=== PATIENT | male | born 1955 | race African-American/Black ===

== ENCOUNTER 2020-02-02 09:33 | Emergency (ER) | payer BC, OTHER ==
[~2020-02-02] VITALS: Ht 177.8 cm; Wt 91.0 kg
[2020-02-02] MEDS ORDERED: ASPIRIN 81MG TABLET PO ONE (10:15)
[2020-02-02 10:21] LABS: HEMATOCRIT. 49.9 % (42.0-52.0); HEMOGLOBIN. 17.3 g/dL (14.0-18.0); LYMPHOCYTES % 33.3 % (20.0-50.0); MEAN CORPUSCULAR HEMOGLOBIN 31.3 pg (28.0-32.0); MEAN CORPUSCULAR VOLUME 90.2 fL (80.0-94.0); MEAN PLATELET VOLUME 7.6 fl (7.4-10.4); MONOCYTES % 9.2 % (2.0-8.0); NEUTROPHILS % 54.5 % (40.0-76.0); PLATELET 205 x1000/uL (130-400); RED BLOOD CELL COUNT 5.53 mill/uL (4.7-6.1); RED CELL DISTRIBUTION WIDTH 14.6 % (11.6-14.6)
[2020-02-02 10:28] LABS: CHLORIDE 104 mEq/L (98-107)
[2020-02-02 10:37] LABS: CREATINE KINASE 372 IU/L (39-308)
[2020-02-02 10:41] LABS: CREATINE KINASE MB FRACTION 1.2 ng/mL (0.5-3.6)
[2020-02-02] MEDS ORDERED: MAGNESIUM/ALUMINUM HYDROXIDE/SIMETHICONE 30ML UDC PO ONE (12:00)
[2020-02-02] MEDS ORDERED: AMLODIPINE 5MG TABLET PO SCH (12:15)
[2020-02-02 13:03] VITALS: BP 158/97
== END 2020-02-02 13:05 | disposition home or self-care (01) ==
LOC: ENRESERV 10:35 → CANRESERV 10:35 → ER 11:08 → EEVIPCON 11:52 → ER 11:52 → CANBEDREQ 13:05
DX: R07.89 Other chest pain (principal); E78.00 Pure hypercholesterolemia, unspecified; E11.9 Type 2 diabetes mellitus without complications; I10 Essential (primary) hypertension
CPT/HCPCS: 36415; 70450; 71045; 80053; 82550; 82553; 83690; 83735; 83880; 84484; 85025; 93005; 93970; 99285; U0003; Z7610

== ENCOUNTER → 2020-08-19 | Outpatient (CLI) | payer BC | END | disposition home or self-care (01) | LOC: LAB 10:45 | PROVIDERS: ATTEND Internal Medicine Critical Care Medicine | DX: Z20.828 Contact with and (suspected) exposure to other viral communicable diseases (principal) | CPT/HCPCS: C9803; U0003 ==

== ENCOUNTER → 2021-08-20 | Outpatient (CLI) | payer BC | END | disposition home or self-care (01) | LOC: CARD 08-19 07:12 | PROVIDERS: ATTEND Internal Medicine Critical Care Medicine | DX: I35.8 Other nonrheumatic aortic valve disorders (principal); I11.9 Hypertensive heart disease without heart failure; I86.8 Varicose veins of other specified sites; M79.89 Other specified soft tissue disorders | CPT/HCPCS: 93306 ==

== ENCOUNTER → 2023-01-27 | Outpatient (CLI) | payer BC ==
[2023-01-27 10:16] LABS: BASOPHILS % 0.8 % (0.0-2.0); EOSINOPHILS % 2.3 % (0.0-5.0); HEMATOCRIT. 48.9 % (42.0-52.0); HEMOGLOBIN. 16.8 g/dL (14.0-18.0); LYMPHOCYTES % 42.2 % (20.0-50.0); MEAN CORPUSCULAR HEMOGLOBIN 31.1 pg (28.0-32.0); MEAN CORPUSCULAR VOLUME 90.8 fL (80.0-94.0); MEAN PLATELET VOLUME 7.8 fl (7.4-10.4); MONOCYTES % 9.4 % (2.0-8.0); NEUTROPHILS % 45.3 % (40.0-76.0); PLATELET 172 x1000/uL (130-400); RED BLOOD CELL COUNT 5.39 mill/uL (4.7-6.1); RED CELL DISTRIBUTION WIDTH 14.4 % (11.6-14.6)
[2023-01-27 10:35] LABS: CHLORIDE 107 mEq/L (98-107)
[2023-01-27 10:48] LABS: HDL CHOLESTEROL 49 mg/dL (40-59); LDL CHOLESTEROL 103 mg/dL (5-100)
== END | disposition home or self-care (01) ==
LOC: LAB 06:17
PROVIDERS: ATTEND Internal Medicine Critical Care Medicine
DX: Z00.01 Encounter for general adult medical examination with abnormal findings (principal)
CPT/HCPCS: 36415; 80053; 80061; 84439; 84443; 84481; 85025; 86141

== ENCOUNTER → 2023-02-26 | Outpatient (CLI) | payer BC | END | disposition home or self-care (01) | LOC: MRI 06:13 | PROVIDERS: ATTEND Internal Medicine Critical Care Medicine | DX: M51.37 Other intervertebral disc degeneration, lumbosacral region (principal); M51.27 Other intervertebral disc displacement, lumbosacral region; M48.07 Spinal stenosis, lumbosacral region; M47.816 Spondylosis without myelopathy or radiculopathy, lumbar region; R22.9 Localized swelling, mass and lump, unspecified | CPT/HCPCS: 72148 ==

== ENCOUNTER → 2023-10-21 | Outpatient (CLI) | payer BC | END | disposition home or self-care (01) | LOC: RAD 11:12 | PROVIDERS: ATTEND Internal Medicine Critical Care Medicine | DX: M25.562 Pain in left knee (principal) | CPT/HCPCS: 73560 ==

== ENCOUNTER → 2024-01-20 | Outpatient (CLI) | payer BC ==
[2024-01-20 10:35] LABS: BASOPHILS % 0.8 % (0.0-2.0); EOSINOPHILS % 2.5 % (0.0-5.0); HEMATOCRIT. 49.4 % (42.0-52.0); HEMOGLOBIN. 16.8 g/dL (14.0-18.0); LYMPHOCYTES % 40.9 % (20.0-50.0); MEAN CORPUSCULAR HEMOGLOBIN 30.8 pg (28.0-32.0); MEAN CORPUSCULAR HGB CONC 34.1 g/dL (31.0-37.0); MEAN CORPUSCULAR VOLUME 90.3 fL (80.0-94.0); MEAN PLATELET VOLUME 8.1 fl (7.4-10.4); MONOCYTES % 10.3 % (2.0-8.0); NEUTROPHILS % 45.5 % (40.0-76.0); PLATELET 188 x1000/uL (130-400); RED BLOOD CELL COUNT 5.47 mill/uL (4.7-6.1); RED CELL DISTRIBUTION WIDTH 13.8 % (11.6-14.6); WHITE BLOOD COUNT 5.5 x1000/uL (4.5-11.0)
[2024-01-20 11:31] LABS: TRIOIODOTHYRONINE TOTAL 1.14 ng/ml (0.60-1.81)
[2024-01-20 15:28] LABS: CARBON DIOXIDE 22 mEq/L (21-32); CHLORIDE 107 mEq/L (98-107); POTASSIUM 4.2 mEq/L (3.5-5.1); SODIUM 140 mEq/L (136-145)
[2024-01-20 15:29] LABS: CALCIUM 9.7 mg/dL (8.7-10.4)
[2024-01-20 15:34] LABS: CREATININE 1.1 mg/dL (0.6-1.3); GLUCOSE 192 mg/dL (70-105); TRIGLYCERIDE 141 mg/dL (0-150); UREA NITROGEN BLOOD 19 mg/dL (9-23)
[2024-01-20 15:35] LABS: ALANINE AMINOTRANSFERASE 38 IU/L (10-49); LDL CHOLESTEROL 113 mg/dL (5-100)
[2024-01-20 15:36] LABS: ALBUMIN 4.6 g/dL (3.2-4.8); ASPARTATE AMINOTRANSFERASE 26 IU/L (<34); BILIRUBIN TOTAL 1.1 mg/dL (0.1-1.0); CHOLESTEROL 164 mg/dL (<200); HDL CHOLESTEROL 44 mg/dL (>55)
[2024-01-20 15:38] LABS: T4 FREE 1.06 ng/dL (0.89-1.76); THYROID STIMULATING HORMONE 1.26 uIU/mL (0.55-4.78)
== END | disposition home or self-care (01) ==
LOC: LAB 06:27
PROVIDERS: ATTEND Internal Medicine Critical Care Medicine
DX: Z00.01 Encounter for general adult medical examination with abnormal findings (principal)
CPT/HCPCS: 36415; 80053; 80061; 84439; 84443; 84480; 85025

== ENCOUNTER → 2025-02-01 | Outpatient (CLI) | payer BC ==
[~2025-02-01] MED LIST: ASPI-1497 PO; COR12 PO; COR6 PO; HYDR12.54 PO; HYDR25TA PO; NITR0.4T49 SL; SIMV-43 PO
== END | disposition home or self-care (01) ==
LOC: CARD 09:53
PROVIDERS: ATTEND Internal Medicine
DX: I07.1 Rheumatic tricuspid insufficiency (principal); I20.0 Unstable angina
CPT/HCPCS: 93306

== ENCOUNTER 2025-02-02 07:14 | Inpatient (IN) | payer BC ==
[~2025-02-02] VITALS: Ht 177.8 cm; Wt 108.6 kg
[2025-02-02] VITALS (13 sets, daily range): BP systolic 118–138; BP diastolic 72–91; PULSE 49–60; RESP 13–21; TEMP 36.4–36.9; O2SAT 92–98
[~2025-02-02 07:14] MED LIST changes: -COR6 PO; -HYDR12.54 PO
[2025-02-02 07:47] LABS: BASOPHILS % 0.6 % (0.0-2.0); HEMATOCRIT. 53.8 % (42.0-52.0); HEMOGLOBIN. 17.7 g/dL (14.0-18.0); LYMPHOCYTES % 38.4 % (20.0-50.0); MEAN CORPUSCULAR HEMOGLOBIN 30.5 pg (28.0-32.0); MEAN CORPUSCULAR HGB CONC 32.9 g/dL (31.0-37.0); MEAN CORPUSCULAR VOLUME 92.7 fL (80.0-94.0); MEAN PLATELET VOLUME 7.8 fl (7.4-10.4); MONOCYTES % 10.6 % (2.0-8.0); NEUTROPHILS % 47.4 % (40.0-76.0); PLATELET 156 x1000/uL (130-400); RED CELL DISTRIBUTION WIDTH 14.2 % (11.6-14.6); WHITE BLOOD COUNT 4.7 x1000/uL (4.5-11.0)
[2025-02-02 07:51] LABS: CHLORIDE 102 mEq/L (98-107); POTASSIUM 4.3 mEq/L (3.5-5.1); SODIUM 136 mEq/L (136-145)
[2025-02-02 07:52] LABS: CALCIUM 9.5 mg/dL (8.7-10.4); CARBON DIOXIDE 24 mEq/L (21-32)
[2025-02-02 07:57] LABS: CREATININE 1.1 mg/dL (0.6-1.3); GLUCOSE 188 mg/dL (70-105); UREA NITROGEN BLOOD 19 mg/dL (9-23)
[2025-02-02] MEDS: SODIUM CHLORIDE 0.45% 500 ML IV ONE (08:18)
[2025-02-02] MEDS ORDERED: HEPARIN 1000 UNITS/ML 10ML ONE (08:34)
[2025-02-02] MEDS ORDERED: LIDOCAINE HCL 1% 20ML VIAL ONE (08:34)
[2025-02-02] MEDS ORDERED: VERAPAMIL HCL 2.5 MG/1 ML 2ML VIAL IV ONE (08:34)
[2025-02-02] MEDS ORDERED: IODIXANOL 320MG/ML 100 ML BOTTLE IV ONE (08:34)
[2025-02-02] MEDS ORDERED: MIDAZOLAM HCL 2 MG/2 ML VIAL ONE (08:54)
[2025-02-02] MEDS ORDERED: FENTANYL CITRATE/PF 50MCG/ML 2ML VIAL ONE (08:54)
[2025-02-02] MEDS ORDERED: DIPHENHYDRAMINE 50MG/ML VIAL ONE ×2 (08:58→09:23)
[2025-02-02] MEDS ORDERED: FUROSEMIDE 40MG/4ML VIAL ONE (09:52)
[2025-02-02] MEDS ORDERED: ACETAMINOPHEN 325MG TABLET PO PRN (10:15)
[2025-02-02] MEDS ORDERED: ATROPINE SULFATE 1MG/10ML SYR IV PRN (10:15)
[2025-02-02] MEDS ORDERED: PNEUMOCOCCAL 20-VAL CONJ-DIP CRM 0.5ML IM ONE (11:45)
[2025-02-02 12:16] LABS: HEPATITIS B SURFACE ANTIGEN NEGATIVE (Negative)
[2025-02-02 12:37] LABS: HEPATITIS C AB NON REACTIVE (Neg) (Negative)
[2025-02-02] MEDS: SPIRONOLACTONE 25MG TABLET PO SCH (12:42)
[2025-02-02] MEDS: CARVEDILOL 12.5MG TABLET PO SCH (13:25)
[2025-02-02] MEDS: FUROSEMIDE 40MG/4ML VIAL IVP SCH (20:28)
[2025-02-03] VITALS: BP 135/85; PULSE 59; RESP 21; TEMP 36.8; O2SAT 99
[2025-02-03 04:00] VITALS: TEMP 36.7
[2025-02-03 04:08] VITALS: BP 147/80; PULSE 61; RESP 21; O2SAT 99
[2025-02-03 07:38] LABS: BASOPHILS % 0.7 % (0.0-2.0); EOSINOPHILS % 1.2 % (0.0-5.0); HEMATOCRIT. 53.2 % (42.0-52.0); HEMOGLOBIN. 18.2 g/dL (14.0-18.0); LYMPHOCYTES % 34.8 % (20.0-50.0); MEAN CORPUSCULAR HEMOGLOBIN 30.4 pg (28.0-32.0); MEAN CORPUSCULAR HGB CONC 34.2 g/dL (31.0-37.0); MEAN CORPUSCULAR VOLUME 88.8 fL (80.0-94.0); MEAN PLATELET VOLUME 8.4 fl (7.4-10.4); MONOCYTES % 8.4 % (2.0-8.0); NEUTROPHILS % 54.9 % (40.0-76.0); PLATELET 192 x1000/uL (130-400); RED BLOOD CELL COUNT 5.99 mill/uL (4.7-6.1); RED CELL DISTRIBUTION WIDTH 13.8 % (11.6-14.6)
[2025-02-03 07:53] LABS: CHLORIDE 97 mEq/L (98-107); POTASSIUM 3.8 mEq/L (3.5-5.1); SODIUM 138 mEq/L (136-145)
[2025-02-03 07:54] LABS: CARBON DIOXIDE 28 mEq/L (21-32)
[2025-02-03 07:55] LABS: CALCIUM 10.1 mg/dL (8.7-10.4)
[2025-02-03 07:59] LABS: CREATININE 1.2 mg/dL (0.6-1.3); GLUCOSE 207 mg/dL (70-105); UREA NITROGEN BLOOD 19 mg/dL (9-23)
[2025-02-03 08:00] VITALS: BP 151/83; PULSE 76; RESP 15; TEMP 36.5; O2SAT 95
[2025-02-03] MEDS: CARVEDILOL 12.5MG TABLET PO SCH (08:29)
[2025-02-03 09:15] VITALS: BP 151/83; PULSE 76; TEMP 97.7; O2SAT 95
[2025-02-06] MEDS ORDERED: HYDR12.54 PO (14:55)
[2025-02-06] MEDS ORDERED: COR6 PO (14:56)
== END 2025-02-03 09:51 | disposition home or self-care (01) | DRG 286 ==
LOC: CCL 07:14 → 3WST 10:22
PROVIDERS: ADMIT Internal Medicine; ATTEND Internal Medicine
PROC: 4A023N7 Measurement of Cardiac Sampling and Pressure, Left Heart, Percutaneous Approach (ICD-10-PCS; principal; 2025-02-02)
PROC: B211YZZ Fluoroscopy of Multiple Coronary Arteries using Other Contrast (ICD-10-PCS; 2025-02-02)
PROC: 5A09357 Assistance with Respiratory Ventilation, Less than 24 Consecutive Hours, Continuous Positive Airway Pressure (ICD-10-PCS; 2025-02-03)
DX: I11.0 Hypertensive heart disease with heart failure (principal); I50.33 Acute on chronic diastolic (congestive) heart failure; E78.5 Hyperlipidemia, unspecified; G47.33 Obstructive sleep apnea (adult) (pediatric); E66.9 Obesity, unspecified; I25.110 Atherosclerotic heart disease of native coronary artery with unstable angina pectoris; Z68.34 Body mass index [BMI] 34.0-34.9, adult; Z79.899 Other long term (current) drug therapy
CPT/HCPCS: 36415; 80048; 83036; 85025; 86705; 87340; 93458; 94070; 94660; 94664; 98960; A4606; C1769; C1887; C1893; J1200; J1644; J1940; J2003; J2250; J3010; J3490; Q9967

== ENCOUNTER → 2025-04-04 | Outpatient (CLI) | payer BC ==
[~2025-04-04] MED LIST changes: -COR12 PO; +COR6 PO; +HYDR12.54 PO; -HYDR25TA PO
[2025-04-04 09:48] LABS: BASOPHILS % 0.7 % (0.0-2.0); EOSINOPHILS % 3.3 % (0.0-5.0); HEMATOCRIT. 50.2 % (42.0-52.0); HEMOGLOBIN. 16.8 g/dL (14.0-18.0); LYMPHOCYTES % 34.1 % (20.0-50.0); MEAN PLATELET VOLUME 7.9 fl (7.4-10.4); MONOCYTES % 9.3 % (2.0-8.0); NEUTROPHILS % 52.6 % (40.0-76.0); PLATELET 178 x1000/uL (130-400); RED BLOOD CELL COUNT 5.62 mill/uL (4.7-6.1); RED CELL DISTRIBUTION WIDTH 14.5 % (11.6-14.6)
[2025-04-04 09:49] LABS: CLARITY URINE CLEAR (CLEAR); COLOR URINE YELLOW (YELLOW); GLUCOSE URINE 3+ (NEGATIVE); KETONES URINE 2+ (NEGATIVE); LEUKOCYTE ESTERASE URINE NEGATIVE (NEGATIVE); NITRITE URINE NEGATIVE (NEGATIVE); OCCULT BLOOD URINE NEGATIVE (NEGATIVE); PH URINE 5.5 (4.5-8.0); PROTEIN URINE NEGATIVE (NEGATIVE); SPECIFIC GRAVITY URINE 1.030 (1.005-1.030); UROBILINOGEN URINE 1.0 E.U./dL (0.2-1.0)
[2025-04-04 10:04] LABS: C REACTIVE PROTEIN HIGH SENS 6.68 mg/l (<1.00)
[2025-04-04 10:06] LABS: CREATININE 1.0 mg/dL (0.6-1.3)
[2025-04-04 10:07] LABS: ASPARTATE AMINOTRANSFERASE 21 IU/L (<34); LDL CHOLESTEROL 104 mg/dL (5-100); T4 FREE 1.26 ng/dL (0.89-1.76); TRIGLYCERIDE 171 mg/dL (0-150); UREA NITROGEN BLOOD 18 mg/dL (9-23)
[2025-04-04 10:09] LABS: BILIRUBIN TOTAL 1.3 mg/dL (0.1-1.0); PROTEIN TOTAL 7.2 g/dL (6.0-8.3)
[2025-04-04 10:24] LABS: WBC URINE 0-2 /hpf (0-2)
[2025-04-04 10:25] LABS: RBC URINE NONE SEEN /hpf (0-2)
[2025-04-04 10:26] LABS: ERYTHROCYTE SEDIMENTATION RATE 3 mm/hr (0-20)
[2025-04-04 10:26] LABS: BACTERIA URINE NONE SEEN; SQUAMOUS EPITHELIAL CELL URINE NONE SEEN /lpf (RARE/1+)
[2025-04-04 10:55] LABS: VITAMIN B12 SERUM 809 pg/mL (211-911)
[2025-04-04 10:56] LABS: FOLIC ACID (FOLATE) SERUM 13.96 ng/mL (>5.38)
[2025-04-05 09:07] LABS: RF PROFILE 13.2 IU/mL (<14.0); VITAMIN D 25-OH 42.6 ng/mL (30.0-100.0)
[2025-04-05 09:07] LABS: *CREATININE RANDOM URINE 82.5 mg/dL (Not Estab.); MICROALBUMIN RANDOM URINE 10.4 ug/mL (Not Estab.); MICROALBUMIN/CREATININE RATIO 13.0 mg/g creat (0-29)
[2025-04-05 13:12] LABS: ANTI-NUCLEAR ANTIBODIES DIRECT Negative (Negative); FOLICLE STIMULATING HORMONE 1.8 mIU/mL (1.5-12.4); LUTEINIZING HORMONE 6.5 mIU/mL (1.7-8.6); PROLACTIN 8.6 ng/mL (3.6-25.2); PROSTATE SPECIFIC AG TOTAL 1.8 ng/mL (0.0-4.0)
[2025-04-06 15:11] LABS: CCP IgG/IgA PROFILE 10 units (0-19)
== END | disposition home or self-care (01) ==
LOC: LAB 05:33
PROVIDERS: ATTEND Internal Medicine Endocrinology, Diabetes & Metabolism
DX: E11.9 Type 2 diabetes mellitus without complications (principal); E78.5 Hyperlipidemia, unspecified; E78.00 Pure hypercholesterolemia, unspecified; E66.9 Obesity, unspecified
CPT/HCPCS: 36415; 80053; 80061; 81003; 82043; 82306; 82570; 82607; 82746; 83001; 83002; 83036; 83921; 84146; 84153; 84402; 84403; 84439; 84443; 85025; 85651; 86038; 86141; 86200; 86431